=== PATIENT | female | born 1950 | race Hispanic/Latino ===

== ENCOUNTER 2018-01-23 21:34 | Emergency (ER) | payer OTHER ==
[2018-01-23 21:45] VITALS: BP 128/81; PULSE 70; RESP 18; TEMP 97.7; O2SAT 100
[2018-01-23] MEDS ORDERED: Tdap Vaccine 0.5 ml Vial (10-64 yrs) IM ONE (23:03)
--- NOTE | 2018-01-24 23:13 | ED PDOC ---
HPI: Trauma/Fall - HPI Time Seen by Provider: 01/23/18 22:19 Chief Complaint (Nursing): Abnormal Skin Integrity History Per: Patient Additional Complaint(s): 67 y/o female no significant PMH presents to ED c/o lip swelling s/p witnessed mechanical fall this morning. Pt slipped on wooden floor this morning and fell, hitting her head and biting her lower lip. Pt has not taken any medication for pain. She is not on blood thinners. Denies LOC, pt got right up from fall. Complaining of mild frontal headache and lip discomfort. Denies facial tenderness, dental pain, mouth pain, vision changes, photophobia, dizziness, N/V, pain elsewhere, difficulty walking, N/V, abdominal pain, neck pain, back pain, chest pain, palpitations, syncope, sob, bruising. - Fall Fall:Prior To Injury: Tripped Past Medical History Reviewed: Historical Data, Nursing Documentation, Vital Signs Vital Signs: Last Vital Signs Temp 97.7 F 01/23/18 21:42 Pulse 70 01/23/18 21:42 Resp 18 01/23/18 21:42 BP 128/81 01/23/18 21:42 Pulse Ox 100 01/23/18 21:42 - Medical History PMH: Kidney Stones - Family History Family History: States: No Known Family Hx - Home Medications Home Medications: Ambulatory Orders Medication Instructions Recorded Multivit,Iron,Min 5/Folic Acid 1 tab PO DAILY 10/17/15 [Strovite Forte Caplet] traMADol [Ultram] 50 mg PO Q6 PRN #16 tab 10/17/15 - Allergies Allergies/Adverse Reactions: Allergies Allergy/AdvReac Type Severity Reaction Status Date / Time No Known Allergies Allergy Verified 10/17/15 00:49 Review of Systems ROS Statement: Except As Marked, All Systems Reviewed And Found Negative Constitutional: Negative for: Fever, Chills Eyes: Negative for: Pain, Vision Change, Conjunctivae Inflammation, Redness ENT: Positive for: Other (top and bottom lip swelling with abrasions). Negative for: Ear Pain, Ear Discharge, Nose Pain, Nose Discharge, Nose Congestion, Mouth Pain, Mouth Swelling, Throat Pain, Throat Swelling Cardiovascular: Negative for: Chest Pain, Palpitations, Light Headedness Respiratory: Negative for: Cough, Shortness of Breath, Hemoptysis Musculoskeletal: Negative for: Neck Pain, Shoulder Pain, Arm Pain, Back Pain, Hand Pain, Leg Pain, Foot Pain Skin: Negative for: Rash, Lesions, Bruising Neurological: Positive for: Headache. Negative for: Weakness, Numbness, Incoordination, Change in Speech, Confusion, Seizures, Altered Mental Status, Dizziness Physical Exam - Reviewed Nursing Documentation Reviewed: Yes Vital Signs Reviewed: Yes - Physical Exam Appears: Positive for: Well, Non-toxic, No Acute Distress Head Exam: Positive for: ATRAUMATIC (no facial tenderness), NORMAL INSPECTION, NORMOCEPHALIC Skin: Positive for: Normal Color, Warm, DRY Eye Exam: Positive for: EOMI, Normal appearance, PERRL ENT: Positive for: Pharynx Is (normal), TM Is/Are (normal, no hemotympanum), Other (swelling to top and bottom lips. 2 superficial abrasions on interior of bottom lip. no broken teeth.). Negative for: Sinus Pain/Drainage, Nasal Congestion, Pharyngeal Erythema, Tonsillar Exudate, Tonsillar Swelling Neck: Positive for: Normal, Painless ROM Cardiovascular/Chest: Positive for: Regular Rate, Rhythm Respiratory: Positive for: CNT, Normal Breath Sounds Pulses-Radial (L): 2+ Pulses-Radial (R): 2+ Gastrointestinal/Abdominal: Positive for: Normal Exam, Bowel Sounds, Soft. Negative for: Tenderness Back: Positive for: Normal Inspection. Negative for: Vertebral Tenderness, Decreased ROM, Muscle Spasm Extremity: Positive for: Normal ROM, Capillary Refill. Negative for: Tenderness, Deformity, Swelling Neurologic/Psych: Positive for: Alert, investment executive II-XII (intact), Oriented, Cerebellar Tests (normal), Gait (normal). Negative for: Motor/Sensory Deficits - ECG O2 Sat by Pulse Oximetry: 100 Medical Decision Making Medical Decision Makin67 y/o female no significant PMH presents to ED c/o lip swelling s/p witnessed mechanical fall this morning. Pt slipped on wooden floor this morning and fell, hitting her head and biting her lower lip. Pt has not taken any medication for pain. She is not on blood thinners. Denies LOC, pt got right up from fall. Complaining of mild frontal headache and lip discomfort. Denies facial tenderness, dental pain, mouth pain, vision changes, photophobia, dizziness, N/V, pain elsewhere, difficulty walking, N/V, abdominal pain, neck pain, back pain, chest pain, palpitations, syncope, sob, bruising. Exam: Normal head, ears, eyes, nose, throat exam. No facial tenderness. PERRLA, EOMI. No hemotympanum. Normal neuro, cardiac, pulmonary, abdominal exam. Top and bottom lips swollen with 2 superficial abrasions on bottom lip. no broken teeth. initial plan: tylenol for headache Reassured pt on low suspicion for concussion or brain bleed. impression: lip abrasion plan: Ice injured areas No strenuous activity Take tylenol for pain as needed Followup with primary doctor within 2 days Return to ED if symptoms persist or worsen pt understands and agrees with plan. clear on signs to return. pt comfortable with discharge home. Disposition - Clinical Impression Clinical Impression: Lip abrasion - Disposition Referrals: [facility] [Outside] Disposition: Routine/Home Disposition Time: 22:45 Condition: IMPROVED Additional Instructions: Ice injured areas No strenuous activity Take tylenol for pain as needed Followup with primary doctor within 2 days Return to ED if symptoms persist or worsen Forms: [employer] (Moz[place]ican), [facility] ED School/Work Excuse
== END 2018-01-23 23:16 | disposition home or self-care (01) ==
LOC: H.ER 21:34
DX: S00.511A Abrasion of lip, initial encounter (principal); W01.0XXA Fall on same level from slipping, tripping and stumbling without subsequent striking against object, initial encounter; Y92.89 Other specified places as the place of occurrence of the external cause

== ENCOUNTER 2018-04-03 10:49 | Observation (INO) | payer OTHER ==
[2018-04-03 10:54] VITALS: BMI 25.2
--- NOTE | 2018-04-03 12:41 | RAD ---
Date of service: 04/03/2018 HISTORY: Vertigo, CP COMPARISON: No prior. FINDINGS: LUNGS: The lungs are well inflated and clear. PLEURA: No pleural effusions or pneumothorax. CARDIOVASCULAR: The heart is normal in size. No aortic atherosclerotic calcification present. OSSEOUS STRUCTURES: Within normal limits for the patient's age. VISUALIZED UPPER ABDOMEN: Normal. OTHER FINDINGS: None. IMPRESSION: No active pulmonary disease.
[2018-04-03 12:57] LABS: BASO % 0.2 % (0.0-2.0); EOS % 0.5 % (0.0-4.0); HEMOGLOBIN 10.8 g/dL (12.0-16.0); LYMPH # 1.1 K/uL (1.0-4.3); LYMPH % 22.2 % (20.0-40.0); MEAN CELL VOLUME 77.4 fl (81.0-99.0); MEAN CORPUSCULAR HEMOGLOBIN 25.5 pg (27.0-31.0); MEAN CORPUSCULAR HGB CONC 32.9 g/dL (33.0-37.0); MEAN PLATELET VOLUME 10.3 fl (7.2-11.7); MONO # 0.3 K/uL (0.0-0.8); MONO % 5.4 % (0.0-10.0); NEUT # 3.4 K/uL (1.8-7.0); NEUT % 71.7 % (50.0-75.0); NRBC % 0.1 % (0.0-0.0); RBC 4.25 Mil/uL (3.80-5.20); RED CELL DISTRIBUTION WIDTH 13.3 % (11.5-14.5); WHITE BLOOD COUNT 4.8 K/uL (4.8-10.8)
[2018-04-03 13:04] LABS: ALB/GLOB RATIO 1.1 (1.0-2.1); ALBUMIN 3.9 g/dL (3.5-5.0); ALT/SGPT 26 U/L (9-52); AST/SGOT 41 U/L (14-36); BLOOD UREA NITROGEN 12 mg/dl (7-17); CALCIUM 9.3 mg/dL (8.4-10.2); GFR NON-AFRICAN AMERICAN > 60
[2018-04-03 13:18] LABS: SQUAMOUS EPITHIAL < 1 /hpf (0-5); URINE BILIRUBIN NEGATIVE (NEGATIVE); URINE BLOOD NEGATIVE (NEGATIVE); URINE CLARITY SLIGHTY-CLOUDY (Clear); URINE COLOR AMBER (YELLOW); URINE GLUCOSE (UA) NEG (NEGATIVE); URINE LEUKOCYTE ESTERASE NEG Leu/uL (Negative); URINE PROTEIN 30 mg/dL (NEGATIVE)
--- NOTE | 2018-04-03 13:24 | CT ---
Date of service: 04/03/2018 PROCEDURE: CT HEAD WITHOUT CONTRAST. HISTORY: Vertigo COMPARISON: None available. TECHNIQUE: Axial computed tomography images were obtained through the head/brain without intravenous contrast. Radiation dose: Total exam DLP = 792.62 mGy-cm. This CT exam was performed using one or more of the following dose reduction techniques: Automated exposure control, adjustment of the mA and/or kV according to patient size, and/or use of iterative reconstruction technique. FINDINGS: HEMORRHAGE: No intracranial hemorrhage. BRAIN: Horton-white matter differentiation is preserved. There are mild chronic microangiopathic changes. There is no mass, mass effect or abnormal extra-axial fluid collection. There is no territorial infarction. The midline sagittal structures are normal. VENTRICLES: The ventricles are normal in size, shape and configuration. CALVARIUM: There is no calvarial fracture or extracranial soft tissue swelling. PARANASAL SINUSES: Predominantly clear. MASTOID AIR CELLS: Predominantly clear. OTHER FINDINGS: None. IMPRESSION: No acute intracranial abnormality. If there is a persistent focal neurologic deficit and an ongoing clinical concern for acute infarction, an MRI of the brain without intravenous contrast would be a more sensitive modality for evaluation of hyperacute/acute ischemic infarction.
[2018-04-03] MEDS ORDERED: Sodium Chloride 0.9% 500 ML IV STA (13:29)
[2018-04-03 14:51] LABS: PARTIAL THROMBOPLASTIN TIME 28.1 Seconds (25.6-37.1); PROTHROMBIN TIME 11.9 Seconds (9.8-13.1)
--- NOTE | 2018-04-03 16:01 | ED PDOC ---
Syncope/Near Syncope/Dizziness Time Seen by Provider: 04/03/18 11:23 Chief Complaint (Nursing): Dizziness/Lightheaded Chief Complaint (Provider): Dizziness/Lightheaded History Per: Patient History/Exam Limitations: no limitations Onset/Duration Of Symptoms: Days (x 1) Current Symptoms Are (Timing): Still Present Activity At Onset Of Symptoms: Had Just Stood up Associated Symptoms Preceding Syncopal Episode: Vertigo Seizure Or Post-ictal Symptoms: None Possible Causative Factor(s): Vertigo, Lightheaded W/Standing Fall Associated With With Symptoms: No Additional Complaint(s): 67 year old female presents to the ED for evaluation of near syncope and dizziness. Patient was sent by PMD after she stood up and felt like she would pass out. She reports that for the last 5 days, she feels dizziness as though the room is spinning associated with nausea and a "funny feeling" in her mid- sternum. Feeling is similar to what she used to feel when she walked up a slight of stairs. Offers no other medical complaints. PMD: Dr. Hurst Past Medical History Reviewed: Historical Data, Nursing Documentation, Vital Signs Vital Signs: Last Vital Signs Temp 97.3 F L 04/03/18 10:54 Pulse 73 04/03/18 10:54 Resp 20 04/03/18 10:54 BP 109/64 04/03/18 10:54 Pulse Ox 99 04/03/18 10:54 - Medical History PMH: Kidney Stones - Surgical History Other surgeries: lithotripsy - Family History Family History: States: Unknown Family Hx - Social History Alcohol: Social - Home Medications Home Medications: Ambulatory Orders Medication Instructions Recorded Multivit,Iron,Min 5/Folic Acid 1 tab PO DAILY 10/17/15 [Strovite Forte Caplet] traMADol [Ultram] 50 mg PO Q6 PRN #16 tab 10/17/15 - Allergies Allergies/Adverse Reactions: Allergies Allergy/AdvReac Type Severity Reaction Status Date / Time No Known Allergies Allergy Verified 10/17/15 00:49 Review of Systems ROS Statement: Except As Marked, All Systems Reviewed And Found Negative Constitutional: Positive for: Other (near syncope) Cardiovascular: Positive for: Chest Pain (mid- sternum) Neurological: Positive for: Dizziness Physical Exam - Reviewed Nursing Documentation Reviewed: Yes Vital Signs Reviewed: Yes - Physical Exam Appears: Positive for: Non-toxic, No Acute Distress Head Exam: Positive for: ATRAUMATIC, NORMAL INSPECTION, NORMOCEPHALIC Skin: Positive for: Normal Color, Warm, Dry. Negative for: Rash Eye Exam: Positive for: Normal appearance, EOMI, PERRL Neck: Positive for: Normal, Painless ROM, Supple Cardiovascular/Chest: Positive for: Regular Rate, Rhythm. Negative for: Murmur Respiratory: Positive for: Normal Breath Sounds. Negative for: Wheezing, Respiratory Distress Gastrointestinal/Abdominal: Positive for: Normal Exam, Soft. Negative for: Ten derness, Guarding, Rebound Extremity: Positive for: Normal ROM (upper and lower extremities). Negative for: Deformity Neurologic/Psych: Positive for: Alert, catalogue maker II-XII (grossly intact), Oriented (x 3), Gait (normal). Negative for: Motor/Sensory Deficits, Aphasia, Facial Droop - Laboratory Results Result Diagrams: 04/03/18 12:40 04/03/18 12:40 - ECG O2 Sat by Pulse Oximetry: 99 (RA) Pulse Ox Interpretation: Normal - Radiology X-Ray: Read By Radiologist X-Ray Interpretation: No Acute Disease Medical Decision Making Medical Decision Makin:03 Impression: chest pain and vertigo Initial Plan: --CT Head w/o contrast --CMP --CBC --PTT/PT --Troponin --CXR --Glucose POC --Antivert 50 mg PO --NS IV 500 mls --Zofran 4 mg IV --UA Head CT FINDINGS: HEMORRHAGE: No intracranial hemorrhage. BRAIN: Horton-white matter differentiation is preserved. There are mild chronic microangiopathic changes. There is no mass, mass effect or abnormal extra-axial fluid collection. There is no territorial infarction. The midline sagittal structures are normal. VENTRICLES: The ventricles are normal in size, shape and configuration. CALVARIUM: There is no calvarial fracture or extracranial soft tissue swelling. PARANASAL SINUSES: Predominantly clear. MASTOID AIR CELLS: Predominantly clear. OTHER FINDINGS: None. IMPRESSION: No acute intracranial abnormality. If there is a persistent focal neurologic deficit and an ongoing clinical concern for acute infarction, an MRI of the brain without intravenous contrast would be a more sensitive modality for evaluation of hyperacute/acute ischemic infarction. ----- Scribe Attestation: Documented by Abiola Sosa, acting as a scribe for Mikaela Cast MD Provider Scribe Attestation: All medical record entries made by the Scribe were at my direction and personally dictated by me. I have reviewed the chart and agree that the record accurately reflects my personal performance of the history, physical exam, medical decision making, and the department course for this patient. I have also personally directed, reviewed, and agree with the discharge instructions and disposition. Disposition - Clinical Impression Clinical Impression: Chest pain, Vertigo, Near syncope - Patient ED Disposition Is Patient to be Admitted: Yes - Disposition Disposition Time: 16:59 Condition: STABLE Forms: [employer] (Khmer) - Pt Status Changed To: Hospital Disposition Of: Inpatient - Admit Certification Admit to Inpatient:: After my assessment, the patient will require hospitalization for at least two midnights. This is because of the severity of symptoms shown, intensity of services needed, and/or the medical risk in this patient being treated as an outpatient. - POA Present On Arrival: None
--- NOTE | 2018-04-03 18:22 | CP.PCM.HP ---
<Joe Roa - Last Filed: 04/03/18 19:11> History of Present Illness - History of Present Illness History of Present Illness: 67 year old female presents to the ED c/o dizziness since 3 days ago. Patient reports she was sent by PMD after she almost pass out. She reports that for the last 3 days, she feels dizziness as though the room is spinning associated with nausea but no vomiting. Also patient reports mild discomfort her mid-sternum for same period of time. She denies pain on neck, jaw or left arm. She endorses similar sx when she walked up a slight of stairs. Otherwise she denies sob, chest pain, palpitations, headaches, blurred vision, tingling, numbness, weakness, hearing loss, tinnitus, no sick contacts. She reports h/o chronic anemia since childhood. PMD: Dr. Hurst PMH: Anemia Meds: no home meds NKDA PSH: laser x b/l cataract, lithotripsy FMH: denies SH: denies tobacco, etoh or ilicit drugs use/. Present on Admission - Present on Admission Any Indicators Present on Admission: No Review of Systems - Review of Systems All systems: reviewed and no additional remarkable complaints except (HPI) Past Patient History - Past Social History Alcohol: Social - RENAL Hx Kidney Stones: Yes - PSYCHIATRIC Hx Substance Use: No - SURGICAL HISTORY Other/Comment: Lithotripsy - ANESTHESIA Hx Anesthesia: Yes Hx Anesthesia Reactions: No Meds Allergies/Adverse Reactions: Allergies Allergy/AdvReac Type Severity Reaction Status Date / Time No Known Allergies Allergy Verified 10/17/15 00:49 Physical Exam - Constitutional Appears: No Acute Distress - Head Exam Head Exam: NORMAL INSPECTION - Eye Exam Eye Exam: EOMI Pupil Exam: PERRL - Respiratory Exam Respiratory Exam: Clear to Auscultation Bilateral, NORMAL BREATHING PATTERN - Cardiovascular Exam Cardiovascular Exam: REGULAR RHYTHM, +S1, +S2. absent: Tachycardia, Systolic Murmur - GI/Abdominal Exam GI & Abdominal Exam: Normal Bowel Sounds, Soft. absent: Distended, Tenderness - Extremities Exam Extremities exam: Negative for: pedal edema - Neurological Exam Neurological exam: Alert, CN II-XII Intact, Oriented x3 - Skin Skin Exam: Dry, Warm Results - Vital Signs Recent Vital Signs: Last Vital Signs Temp 98.7 F 04/03/18 16:34 Pulse 57 L 12/17/18 16:34 Resp 16 04/03/18 16:34 BP 107/55 L 04/03/18 16:34 Pulse Ox 99 04/03/18 17:04 - Labs Result Diagrams: 04/03/18 12:40 04/03/18 12:40 Labs: Laboratory Results - last 24 hr 04/03/18 04/03/18 04/03/18 12:14 12:40 12:40 WBC 4.8 RBC 4.25 Hgb 10.8 L Hct 32.9 L MCV 77.4 L D MCH 25.5 L MCHC 32.9 L RDW 13.3 Plt Count 166 MPV 10.3 Neut % (Auto) 71.7 Lymph % (Auto) 22.2 [place] % (Auto) 5.4 Eos % (Auto) 0.5 Baso % (Auto) 0.2 Neut # (Auto) 3.4 Lymph # (Auto) 1.1 [place] # (Auto) 0.3 Eos # (Auto) 0.0 Baso # (Auto) 0.0 PT INR APTT Sodium 140 Potassium 3.9 Chloride 104 Carbon Dioxide 25 Anion Gap 15 BUN 12 Creatinine 0.5 L Est GFR ( Amer) > 60 Est GFR (Non-Af Amer) > 60 POC Glucose (mg/dL) 107 Random Glucose 108 H Calcium 9.3 Total Bilirubin 0.4 AST 41 H ALT 26 Alkaline Phosphatase 78 Troponin I < 0.0120 Total Protein 7.6 Albumin 3.9 Globulin 3.6 Albumin/Globulin Ratio 1.1 Urine Color Urine Clarity Urine pH Ur Specific [place] Urine Protein Urine Glucose (UA) Urine Ketones Urine Blood Urine Nitrate Urine Bilirubin Urine Urobilinogen Ur Leukocyte Esterase Urine RBC (Auto) Urine Microscopic WBC Ur Squamous Epith Cells 04/03/18 04/03/18 12:40 14:01 WBC RBC Hgb Hct MCV MCH MCHC RDW Plt Count MPV Neut % (Auto) Lymph % (Auto) [place] % (Auto) Eos % (Auto) Baso % (Auto) Neut # (Auto) Lymph # (Auto) [place] # (Auto) Eos # (Auto) Baso # (Auto) PT 11.9 INR 1.0 APTT 28.1 Sodium Potassium Chloride Carbon Dioxide Anion Gap BUN Creatinine Est GFR ( Amer) Est GFR (Non-Af Amer) POC Glucose (mg/dL) Random Glucose Calcium Total Bilirubin AST ALT Alkaline Phosphatase Troponin I Total Protein Albumin Globulin Albumin/Globulin Ratio Urine Color Felisa Urine Clarity Slighty-cloudy Urine pH 6.0 Ur Specific [place] 1.023 Urine Protein 30 Urine Glucose (UA) Neg Urine Ketones Negative Urine Blood Negative Urine Nitrate Negative Urine Bilirubin Negative Urine Urobilinogen 4.0 H Ur Leukocyte Esterase Neg Urine RBC (Auto) 1 Urine Microscopic WBC 1 Ur Squamous Epith Cells < 1 Assessment & Plan - Assessment and Plan (Free Text) Assessment: 67 yo female patient with h/o chronic anemia is admitted for evaluation and management of vertigo and chest discomfort. Plan: Chest discomfort - r/o ACS - admit to tele, VS stable - troponin x1 negative, f/u trending - CXR: negative for acute lung disease - ASA 325 mg once in ED - f/u labs and ekg in am Vertigo - sensation of room spinning - nausea, neg vomiting - head CT negative for intracranial abnormalities. - s/p Antivert once in ED Microcytic anemia, chronic - asymptomatic - H/H 10.8/32.9 - labs in am Prophylaxis - DVT lovenox 40mcg sc daily <Jurgen Keys D - Last Filed: 04/03/18 19:36> Results - Vital Signs Recent Vital Signs: Last Vital Signs Temp 98.6 F 04/03/18 18:15 Pulse 82 04/03/18 18:15 Resp 16 04/03/18 18:15 BP 108/62 04/03/18 18:15 Pulse Ox 99 04/03/18 18:15 - Labs Result Diagrams: 04/03/18 12:40 04/03/18 12:40 Labs: Laboratory Results - last 24 hr 04/03/18 04/03/18 04/03/18 12:14 12:40 12:40 WBC 4.8 RBC 4.25 Hgb 10.8 L Hct 32.9 L MCV 77.4 L D MCH 25.5 L MCHC 32.9 L RDW 13.3 Plt Count 166 MPV 10.3 Neut % (Auto) 71.7 Lymph % (Auto) 22.2 [place] % (Auto) 5.4 Eos % (Auto) 0.5 Baso % (Auto) 0.2 Neut # (Auto) 3.4 Lymph # (Auto) 1.1 [place] # (Auto) 0.3 Eos # (Auto) 0.0 Baso # (Auto) 0.0 PT INR APTT Sodium 140 Potassium 3.9 Chloride 104 Carbon Dioxide 25 Anion Gap 15 BUN 12 Creatinine 0.5 L Est GFR ( Amer) > 60 Est GFR (Non-Af Amer) > 60 POC Glucose (mg/dL) 107 Random Glucose 108 H Calcium 9.3 Total Bilirubin 0.4 AST 41 H ALT 26 Alkaline Phosphatase 78 Troponin I < 0.0120 Total Protein 7.6 Albumin 3.9 Globulin 3.6 Albumin/Globulin Ratio 1.1 Urine Color Urine Clarity Urine pH Ur Specific [place] Urine Protein Urine Glucose (UA) Urine Ketones Urine Blood Urine Nitrate Urine Bilirubin Urine Urobilinogen Ur Leukocyte Esterase Urine RBC (Auto) Urine Microscopic WBC Ur Squamous Epith Cells 04/03/18 04/03/18 12:40 14:01 WBC RBC Hgb Hct MCV MCH MCHC RDW Plt Count MPV Neut % (Auto) Lymph % (Auto) [place] % (Auto) Eos % (Auto) Baso % (Auto) Neut # (Auto) Lymph # (Auto) [place] # (Auto) Eos # (Auto) Baso # (Auto) PT 11.9 INR 1.0 APTT 28.1 Sodium Potassium Chloride Carbon Dioxide Anion Gap BUN Creatinine Est GFR ( Amer) Est GFR (Non-Af Amer) POC Glucose (mg/dL) Random Glucose Calcium Total Bilirubin AST ALT Alkaline Phosphatase Troponin I Total Protein Albumin Globulin Albumin/Globulin Ratio Urine Color Felisa Urine Clarity Slighty-cloudy Urine pH 6.0 Ur Specific [place] 1.023 Urine Protein 30 Urine Glucose (UA) Neg Urine Ketones Negative Urine Blood Negative Urine Nitrate Negative Urine Bilirubin Negative Urine Urobilinogen 4.0 H Ur Leukocyte Esterase Neg Urine RBC (Auto) 1 Urine Microscopic WBC 1 Ur Squamous Epith Cells < 1 Attending/Attestation - Attestation I have personally seen and examined this patient.: Yes I have fully participated in the care of the patient.: Yes I have reviewed all pertinent clinical information: Yes Notes (Text): 04/03/18 19:35 Patient seen and examined with resident. Case discussed and agreed with assessment and plan of management.
[2018-04-04 05:17] VITALS: RESP 18
[2018-04-04 05:58] LABS: IRON 121 ug/dL (37-170)
[2018-04-04 05:59] LABS: BASO % 0.4 % (0.0-2.0); EOS # 0.1 K/uL (0.0-0.7); EOS % 1.7 % (0.0-4.0); HEMOGLOBIN 10.3 g/dL (12.0-16.0); LYMPH % 55.1 % (20.0-40.0); MEAN CELL VOLUME 79.6 fl (81.0-99.0); MEAN CORPUSCULAR HEMOGLOBIN 25.7 pg (27.0-31.0); MEAN CORPUSCULAR HGB CONC 32.3 g/dL (33.0-37.0); MEAN PLATELET VOLUME 10.4 fl (7.2-11.7); MONO # 0.3 K/uL (0.0-0.8); NEUT # 1.3 K/uL (1.8-7.0); NEUT % 35.8 % (50.0-75.0); NRBC % 0.2 % (0.0-0.0); RED CELL DISTRIBUTION WIDTH 13.6 % (11.5-14.5); WHITE BLOOD COUNT 3.6 K/uL (4.8-10.8)
[2018-04-04 06:07] LABS: % IRON SATURATION 47 % (20-55); TOTAL IRON BINDING CAPACITY 257 ug/dL (250-450)
[2018-04-04 06:23] LABS: ALBUMIN 3.5 g/dL (3.5-5.0); ALT/SGPT 26 U/L (9-52); AST/SGOT 27 U/L (14-36); BLOOD UREA NITROGEN 10 mg/dl (7-17); CALCIUM 9.1 mg/dL (8.4-10.2); GFR NON-AFRICAN AMERICAN > 60
[2018-04-04] MEDS ORDERED: Multivitamin With Minerals Tab PO SCH (09:00)
[2018-04-04] MEDS ORDERED: Enoxaparin 40 mg Syringe SC SCH (09:00)
--- NOTE | 2018-04-04 11:24 | CP.PCM.DIS ---
<Heath Manzanares - Last Filed: 04/04/18 12:32> Provider - Provider Date of Admission: 04/03/18 17:03 Attending physician: Jurgen Keys MD Time Spent in preparation of Discharge (in minutes): 35 Diagnosis - Discharge Diagnosis (1) Vertigo Status: Chronic Comment: Improved with Meclizine. F/U as outpatient CT head no acute abnormality (2) Chest pain Status: Resolved Comment: ACS ruled out. Hospital Course - Lab Results Lab Results: Most Recent Lab Values WBC 3.6 K/uL (4.8-10.8) L 04/04/18 04:25 RBC 4.00 Mil/uL (3.80-5.20) 04/04/18 04:25 Hgb 10.3 g/dL (12.0-16.0) L 04/04/18 04:25 Hct 31.8 % (34.0-47.0) L 04/04/18 04:25 MCV 79.6 fl (81.0-99.0) L D 04/04/18 04:25 MCH 25.7 pg (27.0-31.0) L 04/04/18 04:25 MCHC 32.3 g/dL (33.0-37.0) L 04/04/18 04:25 RDW 13.6 % (11.5-14.5) 04/04/18 04:25 Plt Count 175 K/uL (130-400) 04/04/18 04:25 MPV 10.4 fl (7.2-11.7) 04/04/18 04:25 Neut % (Auto) 35.8 % (50.0-75.0) L 04/04/18 04:25 Lymph % (Auto) 55.1 % (20.0-40.0) H 04/04/18 04:25 [place] % (Auto) 7.0 % (0.0-10.0) 04/04/18 04:25 Eos % (Auto) 1.7 % (0.0-4.0) 04/04/18 04:25 Baso % (Auto) 0.4 % (0.0-2.0) 04/04/18 04:25 Neut # (Auto) 1.3 K/uL (1.8-7.0) L 04/04/18 04:25 Lymph # (Auto) 2.0 K/uL (1.0-4.3) 04/04/18 04:25 [place] # (Auto) 0.3 K/uL (0.0-0.8) 04/04/18 04:25 Eos # (Auto) 0.1 K/uL (0.0-0.7) 04/04/18 04:25 Baso # (Auto) 0.0 K/uL (0.0-0.2) 04/04/18 04:25 PT 11.9 Seconds (9.8-13.1) 04/03/18 14:01 INR 1.0 04/03/18 14:01 APTT 28.1 Seconds (25.6-37.1) 04/03/18 14:01 Sodium 141 mmol/l (132-148) 04/04/18 04:25 Potassium 4.0 MMOL/L (3.6-5.0) 04/04/18 04:25 Chloride 105 mmol/L (98-107) 04/04/18 04:25 Carbon Dioxide 29 mmol/L (22-30) 04/04/18 04:25 Anion Gap 11 (10-20) 04/04/18 04:25 BUN 10 mg/dl (7-17) 04/04/18 04:25 Creatinine 0.6 mg/dl (0.7-1.2) L 04/04/18 04:25 Est GFR ( Amer) > 60 04/04/18 04:25 Est GFR (Non-Af Amer) > 60 04/04/18 04:25 POC Glucose (mg/dL) 107 mg/dL (65-110) 04/03/18 12:14 Random Glucose 97 mg/dL (65-105) 04/04/18 04:25 Calcium 9.1 mg/dL (8.4-10.2) 04/04/18 04:25 Iron 121 ug/dL (37-170) 04/04/18 04:25 TIBC 257 ug/dL (250-450) 04/04/18 04:25 % Saturation 47 % (20-55) 04/04/18 04:25 Ferritin 155.0 ng/Ml (11.1-264.0) 04/04/18 04:25 Total Bilirubin 0.5 mg/dl (0.2-1.3) 04/04/18 04:25 AST 27 U/L (14-36) 04/04/18 04:25 ALT 26 U/L (9-52) 04/04/18 04:25 Alkaline Phosphatase 61 U/L (38-126) 04/04/18 04:25 Troponin I < 0.0120 ng/mL (0.00-0.120) 04/04/18 04:25 Total Protein 7.0 G/DL (6.3-8.2) 04/04/18 04:25 Albumin 3.5 g/dL (3.5-5.0) 04/04/18 04:25 Globulin 3.4 gm/dL (2.2-3.9) 04/04/18 04:25 Albumin/Globulin Ratio 1.0 (1.0-2.1) 04/04/18 04:25 Urine Color Felisa (YELLOW) 04/03/18 12:40 Urine Clarity Slighty-cloudy (Clear) 04/03/18 12:40 Urine pH 6.0 (5.0-8.0) 04/03/18 12:40 Ur Specific [place] 1.023 (1.003-1.030) 04/03/18 12:40 Urine Protein 30 mg/dL (NEGATIVE) 04/03/18 12:40 Urine Glucose (UA) Neg mg/dL (NEGATIVE) 04/03/18 12:40 Urine Ketones Negative mg/dL (NEGATIVE) 04/03/18 12:40 Urine Blood Negative (NEGATIVE) 04/03/18 12:40 Urine Nitrate Negative (NEGATIVE) 04/03/18 12:40 Urine Bilirubin Negative (NEGATIVE) 04/03/18 12:40 Urine Urobilinogen 4.0 mg/dL (0.2-1.0) H 04/03/18 12:40 Ur Leukocyte Esterase Neg Elio/uL (Negative) 04/03/18 12:40 Urine RBC (Auto) 1 /hpf (0-3) 04/03/18 12:40 Urine Microscopic WBC 1 /hpf (0-5) 04/03/18 12:40 Ur Squamous Epith Cells < 1 /hpf (0-5) 04/03/18 12:40 - Hospital Course Hospital Course: 67 y/o with Hx of chronic anemia was admitted for vertigo and to r/o ACS after c/o episode or dizziness with chest pressure before arrival. Cardiac work up was done, trops and EKG didnt revealed any signs of acute ischemia. Echo report pending. CT head reports no acute disease. Patient clinically improved. States she f/u regularly with her PMD. Stable to DC home and c/u outpatient f/u and work up. Discharge Exam - Head Exam Head Exam: NORMAL INSPECTION - Eye Exam Eye Exam: PERRL - ENT Exam ENT Exam: Mucous Membranes Moist - Respiratory Exam Respiratory Exam: Clear to PA & Lateral, NORMAL BREATHING PATTERN, UNREMARKABLE - Cardiovascular Exam Cardiovascular Exam: REGULAR RHYTHM, +S1, +S2. absent: Gallop - GI/Abdominal Exam GI & Abdominal Exam: Normal Bowel Sounds, Soft - Neurological Exam Neurological exam: Alert, Normal Gait, Oriented x3 - Psychiatric Exam Psychiatric exam: Normal Affect, Normal Mood - Skin Skin Exam: Warm Discharge Plan - Follow Up Plan Condition: STABLE Disposition: HOME/ ROUTINE Patient education suggested?: Yes Instructions: Chest Pain (DC), Near Fainting (DC) Additional Instructions: F/U with PMD in 2-3 days Take meds as prescribed If dizziness, chest pain or Shortness of breath return to ED please follow up with ent for possible labrynthitis <Jurgen Keys - Last Filed: 04/04/18 16:43> Provider - Provider Date of Admission: 04/03/18 17:03 Attending physician: Jurgen Keys MD Hospital Course - Lab Results Lab Results: Most Recent Lab Values WBC 3.6 K/uL (4.8-10.8) L 04/04/18 04:25 RBC 4.00 Mil/uL (3.80-5.20) 04/04/18 04:25 Hgb 10.3 g/dL (12.0-16.0) L 04/04/18 04:25 Hct 31.8 % (34.0-47.0) L 04/04/18 04:25 MCV 79.6 fl (81.0-99.0) L D 04/04/18 04:25 MCH 25.7 pg (27.0-31.0) L 04/04/18 04:25 MCHC 32.3 g/dL (33.0-37.0) L 04/04/18 04:25 RDW 13.6 % (11.5-14.5) 04/04/18 04:25 Plt Count 175 K/uL (130-400) 04/04/18 04:25 MPV 10.4 fl (7.2-11.7) 04/04/18 04:25 Neut % (Auto) 35.8 % (50.0-75.0) L 04/04/18 04:25 Lymph % (Auto) 55.1 % (20.0-40.0) H 04/04/18 04:25 [place] % (Auto) 7.0 % (0.0-10.0) 04/04/18 04:25 Eos % (Auto) 1.7 % (0.0-4.0) 04/04/18 04:25 Baso % (Auto) 0.4 % (0.0-2.0) 04/04/18 04:25 Neut # (Auto) 1.3 K/uL (1.8-7.0) L 04/04/18 04:25 Lymph # (Auto) 2.0 K/uL (1.0-4.3) 04/04/18 04:25 [place] # (Auto) 0.3 K/uL (0.0-0.8) 04/04/18 04:25 Eos # (Auto) 0.1 K/uL (0.0-0.7) 04/04/18 04:25 Baso # (Auto) 0.0 K/uL (0.0-0.2) 04/04/18 04:25 PT 11.9 Seconds (9.8-13.1) 04/03/18 14:01 INR 1.0 04/03/18 14:01 APTT 28.1 Seconds (25.6-37.1) 04/03/18 14:01 Sodium 141 mmol/l (132-148) 04/04/18 04:25 Potassium 4.0 MMOL/L (3.6-5.0) 04/04/18 04:25 Chloride 105 mmol/L (98-107) 04/04/18 04:25 Carbon Dioxide 29 mmol/L (22-30) 04/04/18 04:25 Anion Gap 11 (10-20) 04/04/18 04:25 BUN 10 mg/dl (7-17) 04/04/18 04:25 Creatinine 0.6 mg/dl (0.7-1.2) L 04/04/18 04:25 Est GFR ( Amer) > 60 04/04/18 04:25 Est GFR (Non-Af Amer) > 60 04/04/18 04:25 POC Glucose (mg/dL) 107 mg/dL (65-110) 04/03/18 12:14 Random Glucose 97 mg/dL (65-105) 04/04/18 04:25 Calcium 9.1 mg/dL (8.4-10.2) 04/04/18 04:25 Iron 121 ug/dL (37-170) 04/04/18 04:25 TIBC 257 ug/dL (250-450) 04/04/18 04:25 % Saturation 47 % (20-55) 04/04/18 04:25 Ferritin 155.0 ng/Ml (11.1-264.0) 04/04/18 04:25 Total Bilirubin 0.5 mg/dl (0.2-1.3) 04/04/18 04:25 AST 27 U/L (14-36) 04/04/18 04:25 ALT 26 U/L (9-52) 04/04/18 04:25 Alkaline Phosphatase 61 U/L (38-126) 04/04/18 04:25 Troponin I < 0.0120 ng/mL (0.00-0.120) 04/04/18 04:25 Total Protein 7.0 G/DL (6.3-8.2) 04/04/18 04:25 Albumin 3.5 g/dL (3.5-5.0) 04/04/18 04:25 Globulin 3.4 gm/dL (2.2-3.9) 04/04/18 04:25 Albumin/Globulin Ratio 1.0 (1.0-2.1) 04/04/18 04:25 Urine Color Felisa (YELLOW) 04/03/18 12:40 Urine Clarity Slighty-cloudy (Clear) 04/03/18 12:40 Urine pH 6.0 (5.0-8.0) 04/03/18 12:40 Ur Specific [place] 1.023 (1.003-1.030) 04/03/18 12:40 Urine Protein 30 mg/dL (NEGATIVE) 04/03/18 12:40 Urine Glucose (UA) Neg mg/dL (NEGATIVE) 04/03/18 12:40 Urine Ketones Negative mg/dL (NEGATIVE) 04/03/18 12:40 Urine Blood Negative (NEGATIVE) 04/03/18 12:40 Urine Nitrate Negative (NEGATIVE) 04/03/18 12:40 Urine Bilirubin Negative (NEGATIVE) 04/03/18 12:40 Urine Urobilinogen 4.0 mg/dL (0.2-1.0) H 04/03/18 12:40 Ur Leukocyte Esterase Neg Elio/uL (Negative) 04/03/18 12:40 Urine RBC (Auto) 1 /hpf (0-3) 04/03/18 12:40 Urine Microscopic WBC 1 /hpf (0-5) 04/03/18 12:40 Ur Squamous Epith Cells < 1 /hpf (0-5) 04/03/18 12:40 Attending/Attestation - Attestation I have personally seen and examined this patient.: Yes I have fully participated in the care of the patient.: Yes I have reviewed all pertinent clinical information, including history, physical exam and plan: Yes Notes (Text): 04/04/18 16:42 Patient seen and examined with resident. Case discussed and agreed with assessment. Patient discharged in stable condition and advised follow up with ENT to evaluate for labrynthitis
[2018-04-04 11:48] VITALS: BP 92/56; PULSE 60; TEMP 98.2; O2SAT 100
--- NOTE | 2018-04-04 19:38 | CARD ---
APPROVED REPORT Date of service: 04/04/2018 EXAM: Two-dimensional and M-mode echocardiogram with Doppler and color Doppler. Other Information Quality : ExcellentRhythm : NSR INDICATION Chest Pain Light headedness 2D DIMENSIONS IVSd1.01 (0.7-1.1cm)LVDd4.72 (3.9-5.9cm) LVOT Diameter1.73 (1.8-2.4cm)PWd0.84 (0.7-1.1cm) IVSs1.28 (0.8-1.2cm)LVDs3.21 (2.5-4.0cm) FS (%) 32.1 %PWs1.51 (0.8-1.2cm) M-Mode DIMENSIONS Left Atrium (MM)3.39 (2.5-4.0cm)IVSd0.81 (0.7-1.1cm) Aortic Root2.60 (2.2-3.7cm)LVDd5.38 (4.0-5.6cm) Aortic Cusp Exc.1.84 (1.5-2.0cm)PWd0.84 (0.7-1.1cm) IVSs1.36 cmFS (%) 38 % LVDs3.35 (2.0-3.8cm)PWs1.39 cm Aortic Valve AoV Peak Zrifavgs540.7cm/sAoV VTI26.2cmAO Peak GR.8mmHg LVOT Peak Ypulsxon123.5cm/sLVOT VTI19.03cmAO Mean GR.4mmHg ANA (VMAX)1.98xt8VZT (VTI)0.99cm2 Mitral Valve MV E Pqhzcodd01.3cm/sMV DECEL [id number] A Eijqplvo38.1cm/s MV UWQ30txE/A ratio0.9MVA (PHT)2.99cm2 TDI Lateral E' Peak V10.67cm/sMedial E' Peak V6.76cm/sE/Lateral E'5.1 E/Medial E'8.0 Pulmonary Valve PV Peak Ncmmuzvj32.4cm/s Tricuspid Valve TR Peak Rilwiznk593ys/sRAP QSJGVGWK77veDtQS Peak Gr.19mmHg AAHH83fvAg LEFT VENTRICLE The left ventricle is normal size. There is normal left ventricular wall thickness. The left ventricular systolic function is normal. The estimated ejection fraction is 60-65% No regional wall motion abnormalities noted.. Transmitral Doppler flow pattern is Grade I-abnormal relaxation pattern. No left ventricle thrombus noted on this study. There is no ventricular septal defect visualized. There is no left ventricular aneurysm. There is no mass noted in the left ventricle. RIGHT VENTRICLE The right ventricle is normal size. There is normal right ventricular wall thickness. The right ventricular systolic function is normal. ATRIA The left atrium size is normal. The right atrium size is normal. The interatrial septum is intact with no evidence for an atrial septal defect. AORTIC VALVE The aortic valve is normal in structure. No aortic regurgitation is present. There is no aortic valvular stenosis. There is no aortic valvular vegetation. MITRAL VALVE The mitral valve is normal in structure. There is no evidence of mitral valve prolapse. There is no mitral valve stenosis. There is no mitral valve regurgitation noted. TRICUSPID VALVE The tricuspid valve is normal in structure. There is mild tricuspid valve regurgitation noted. RVSP is calculated at 26 mm Hg. There is no tricuspid valve prolapse or vegetation. There is no tricuspid valve stenosis. PULMONIC VALVE The pulmonary valve is normal in structure. There is no pulmonic valvular regurgitation. There is no pulmonic valvular stenosis. GREAT VESSELS The aortic root is normal in size. The ascending aorta is normal in size. The pulmonary artery is normal. The IVC is normal in size and collapses >50% with inspiration. PERICARDIAL EFFUSION There is no pericardial effusion. There is no pleural effusion. <Conclusion> The estimated ejection fraction is 60-65% Transmitral Doppler flow pattern is Grade I-abnormal relaxation pattern. The left atrium size is normal. There is mild tricuspid valve regurgitation noted. RVSP is calculated at 26 mm Hg.
== END 2018-04-04 15:00 | disposition home or self-care (01) ==
LOC: H.ER 10:49 → H.ERHOLD 17:03 → INTOOBSV 17:03 → H.TEL 18:54
DX: R42 Dizziness and giddiness (principal); R07.9 Chest pain, unspecified; Z87.442 Personal history of urinary calculi; D50.9 Iron deficiency anemia, unspecified
CPT/HCPCS: 36415; 70450; 71045; 80053; 81003; 82728; 82948; 83540; 83550; 84484; 85025; 85610; 85730; 93306; 96360; 99285; G0378; J1650; J2405; J7030